=== PATIENT | male | born 1950 | race Caucasian/White ===

== ENCOUNTER 2017-03-29 15:23 | Emergency (ER) | payer BC ==
[~2017-03-29] VITALS: Ht 172.7 cm; Wt 74.5 kg
[2017-03-29 15:33] VITALS: TEMP 36.6; Ht 172.7 cm; Wt 74.5 kg
[2017-03-29] MEDS ORDERED: METOPROLOL TARTRATE 25 MG TAB PO STA (16:16)
--- NOTE | 2017-03-29 16:28 | DIAGNOSTIC IMAGING REPORT ---
CHEST ONE VIEW PORTABLE CLINICAL HISTORY: Chest discomfort COMPARISON STUDY: No previous studies for comparison. FINDINGS: Lung lungs are normal. There is no pneumothorax or pleural effusion. There is no evidence of pulmonary edema. A 2.9 cm nodular left midlung opacity likely reflects summation artifact with pulmonary vessels and ribs. Cardiomediastinal silhouette is normal. IMPRESSION: 1. No acute cardiopulmonary findings. 2. 2.9 cm left mid lung nodular opacity likely reflects summation artifact with ribs and pulmonary vessels. However, follow-up PA and shallow oblique chest radiographs are recommended to exclude a pulmonary nodule or airspace disease. Electronically signed by: Lee Adamson M.D. 03/29/2017 4:27 PM Dictated Date/Time: 03/29/2017 4:26 PM
[2017-03-29 16:47] LABS: HEMATOCRIT 50.1 % (42-52); MEAN CELL VOLUME 94.4 fL (80-100); MEAN CORPUSCULAR HEMOGLOBIN 33.5 pg (25-34); MEAN CORPUSCULAR HGB CONC 35.5 g/dl (32-36); MEAN PLATELET VOLUME 9.7 fL (7.4-10.4); PLATELET COUNT 291 K/uL (130-400); RED BLOOD COUNT 5.31 M/uL (4.7-6.1); WHITE BLOOD COUNT 8.81 K/uL (4.8-10.8)
--- NOTE | 2017-03-29 17:02 | DIAGNOSTIC IMAGING REPORT ---
CHEST-PA,LAT AND OBLIQUE VIEWS CLINICAL HISTORY: Possible pulmonary nodule. COMPARISON STUDY: Chest radiograph performed earlier today. FINDINGS: No pulmonary nodule is identified by radiography. The possible left mid lung nodule shown on prior exam reflects summation artifact. This is not confirmed on these images. Cardiac size is normal. Mediastinal contours are normal. There is no evidence of pulmonary edema. IMPRESSION: No acute cardiopulmonary findings. The possible left lung nodule on prior portable chest radiograph was artifactual. Electronically signed by: Lee Adamson M.D. 03/29/2017 5:01 PM Dictated Date/Time: 03/29/2017 5:00 PM
[2017-03-29 17:03] LABS: PARTIAL THROMBOPLASTIN RATIO 1.1; PROTHROMBIN TIME (PATIENT) 10.5 SECONDS (9.0-12.0)
[2017-03-29 17:10] LABS: ALB/GLOB RATIO 1.1 (0.9-2); BUN/CREATININE RATIO 14.8 (10-20); CALCIUM 8.9 mg/dl (8.5-10.1); CREATININE 1.2 mg/dl (0.60-1.40); POTASSIUM 4.1 mmol/L (3.5-5.1)
[2017-03-29 17:11] LABS: CKMB/CK RATIO 1.5 (0-3.0)
[2017-03-29] MEDS ORDERED: METO25TA56 PO (18:04)
[2017-03-29 18:21] VITALS: BP 124/89; PULSE 79; O2SAT 98
--- NOTE | 2017-03-29 19:09 | EMERGENCY ROOM VISIT NOTE ---
History Report prepared by Soy: Azalea Aguilar Under the Supervision of: Dr. Osmel Jin M.D. First contact with patient: 16:08 Chief Complaint: IRREGULAR HEARTBEAT Stated Complaint: A FIB AND FLUTTER Nursing Triage Summary: pt went to yesterday dx with afib told to come to ed peggy yonny garcía. pt came to ed today. pt denies any chest pain or discomfort at times sob History of Present Illness The patient is a 66 year old male who presents to the Emergency Room with complaints of atrial fibrillation occurring yesterday. The patient states that he was at Dr. Griffith's office getting a flight physical done. During the exam Dr. Griffith noticed he was in A Fib. An ECG was done which revealed atrial fibrillation with flutter. He was referred to the ED for evaluation. He was told to go to the ED immediately but decided to come today. The patient states that sometimes he can feel a skipping sensation in his chest but otherwise is asymptomatic. He states that yesterday and today he cannot tell that he is in A Fib. The patient is currently experiencing no symptoms. He denies chest pain, shortness of breath, lightheadedness, vomiting, nausea, diarrhea, black or bloody stools. The patient was told last year that he was in A Fib. He was seen by of cardiology. He was told to take Metoprolol but he never filled the script. Source of History: patient Onset: yesterday Position: other (global) Quality: other (atrial fibrilation) Timing: other (episode) Associated Symptoms: No chest pain, No SOB, No nausea, No vomiting, No diarrhea Review of Systems See HPI for pertinent positives & negatives. A total of 10 systems reviewed and were otherwise negative. Past Medical & Surgical Medical Problems: (1) Atrial fibrillation (2) S/P hernia repair Family History Patient reports no known family medical history. Social History Smoking Status: Never Smoker Marital Status: Housing Status: lives with family Occupation Status: employed Current/Historical Medications Scheduled Metoprolol Tartrate (Lopressor) (Lopressor), 1 TAB PO BID Allergies Coded Allergies: BEE STING (Verified Allergy, Unknown, ., 03/29/17) Physical Exam Vital Signs Date Time Temp Pulse Resp B/P (MAP) Pulse Ox O2 Delivery O2 Flow Rate FiO2 03/29/17 18:21 79 20 124/89 98 7/12/17 16:59 118 18 139/102 97 Room Air 03/29/17 16:04 92 03/29/17 15:33 36.6 104 18 115/78 97 Room Air Physical Exam Constitutional: Vital signs reviewed. Eyes: Pupils are equal round reactive to light. Conjunctiva are noninjected. ENT: Pharynx is clear without erythema or exudate. Mucous membranes are moist. Neck supple without meningeal signs. Respiratory: Clear to auscultation bilaterally. Breath sounds are equal bilaterally. Cardiovascular: Irregularly irregular rhythm. Tachycardic. Rate of 109. GI: Soft, nondistended and nontender. Bowel sounds are present. Musculoskeletal: No peripheral edema. No lower extremity tenderness. Integumentary: No cyanosis. Neurological: The patient is awake and alert. No focal deficits. Psychiatric: Normal affect. Medical Decision & Procedures ER Provider Diagnostic Interpretation: X-ray results as stated below per interpretation by me and the radiologist: CHEST ONE VIEW PORTABLE CLINICAL HISTORY: Chest discomfort COMPARISON STUDY: No previous studies for comparison. FINDINGS: Lung lungs are normal. There is no pneumothorax or pleural effusion. There is no evidence of pulmonary edema. A 2.9 cm nodular left midlung opacity likely reflects summation artifact with pulmonary vessels and ribs. Cardiomediastinal silhouette is normal. IMPRESSION: 1. No acute cardiopulmonary findings. 2. 2.9 cm left mid lung nodular opacity likely reflects summation artifact with ribs and pulmonary vessels. However, follow-up PA and shallow oblique chest radiographs are recommended to exclude a pulmonary nodule or airspace disease. Electronically signed by: Lee Adamson M.D. 03/29/2017 4:27 PM Dictated Date/Time: 03/29/2017 4:26 PM CHEST-PA,LAT AND OBLIQUE VIEWS CLINICAL HISTORY: Possible pulmonary nodule. COMPARISON STUDY: Chest radiograph performed earlier today. FINDINGS: No pulmonary nodule is identified by radiography. The possible left mid lung nodule shown on prior exam reflects summation artifact. This is not confirmed on these images. Cardiac size is normal. Mediastinal contours are normal. There is no evidence of pulmonary edema. IMPRESSION: No acute cardiopulmonary findings. The possible left lung nodule on prior portable chest radiograph was artifactual. Electronically signed by: Lee Adamson M.D. 03/29/2017 5:01 PM Dictated Date/Time: 03/29/2017 5:00 PM Laboratory Results 03/29/17 16:37 03/29/17 16:37 Test 03/29/17 16:37 03/29/17 17:02 Red Blood Count 5.31 M/uL (4.7-6.1) Mean Corpuscular Volume 94.4 fL (80-100) Mean Corpuscular Hemoglobin 33.5 pg (25-34) Mean Corpuscular Hemoglobin Concent 35.5 g/dl (32-36) RDW Standard Deviation 48.8 fL (36.4-46.3) RDW Coefficient of Variation 14.1 % (11.5-14.5) Mean Platelet Volume 9.7 fL (7.4-10.4) Prothrombin Time 10.5 SECONDS (9.0-12.0) Prothromb Time International Ratio 1.0 (0.9-1.1) Activated Partial Thromboplast Time 28.3 SECONDS (21.0-31.0) Partial Thromboplastin Ratio 1.1 Anion Gap 8.0 mmol/L (3-11) Est Creatinine Clear Calc Drug Dose 60.2 ml/min Estimated GFR () 73.6 Estimated GFR (Non- 63.5 BUN/Creatinine Ratio 14.8 (10-20) Calcium Level 8.9 mg/dl (8.5-10.1) Magnesium Level 2.4 mg/dl (1.8-2.4) Total Bilirubin 0.6 mg/dl (0.2-1) Aspartate Amino Transf (AST/SGOT) 21 U/L (15-37) Alanine Aminotransferase (ALT/SGPT) 28 U/L (12-78) Alkaline Phosphatase 57 U/L (45-117) Total Creatine Kinase 75 U/L (39-308) Creatine Kinase MB 1.1 ng/ml (0.5-3.6) Creatine Kinase MB Ratio 1.5 (0-3.0) Total Protein 7.2 gm/dl (6.4-8.2) Albumin 3.7 gm/dl (3.4-5.0) Globulin 3.5 gm/dl (2.5-4.0) Albumin/Globulin Ratio 1.1 (0.9-2) Bedside Troponin I < 0.030 ng/ml (0-0.045) Laboratory results as reviewed by me. Medications Administered Medications (Trade) Dose Ordered Sig/Moise Route Start Time Stop Time Status Last Admin Dose Admin Metoprolol Tartrate (Lopressor Tab) 25 mg NOW STAT PO 03/29/17 16:16 03/29/17 16:17 DC 03/29/17 16:59 25 MG ECG Indication: palpitations Rate (beats per minute): 119 Rhythm: atrial fibrillation (with RVR) Findings: nonspecific-ST abn, other (no QRS widening) ED Course 1611: The patient was evaluated in room C1. A complete history and physical exam was performed. 1616: Lopressor Tab 25 mg PO. 1706: The patient's heart rate is still about 100. He is being given Metoprolol at this time. He has no complaints. 1723: The patient's heart rate is 90. He is still asymptomatic. 1730: TANNER, DS-VASc score is zero. 1757: I spoke with Dr. Magaña - Cardiology [facility] about the patient. He says to put patient on Metoprolol 25mg BID. Leave on Aspirin. He says to have patient follow up with cardiology within the week. 180: I discussed the plan with the patient. He agrees. His heart rate is 85. 1804: Upon reevaluation, the patient appeared to have improvement of his symptoms. I discussed tonight's findings with him. He verbalized agreement of the treatment plan. He was discharged home. Medical Decision this is a 66-year-old male who presents with atrial fibrillation. Differential diagnosis includes paroxysmal A. fib, chronic A. fib, A. fib with RVR, electrolyte abnormality, dehydration, metabolic derangement. I did perform a limited focused review of portions of the patient's old chart on the electronic medical record. The patient has had no recent pertinent visits to this hospital. Medication Reconciliation: I attest that I have personally reviewed the patient' s current medication list. Blood Pressure Screening: Patient was found to have normal blood pressure on screening and does not require follow-up. I did evaluate the patient as noted above. IV access was established. The patient was placed on a continuous machine compositor. I did order and personally review the patient's 12-lead EKG and chest x-ray as described above. The patient does have atrial fibrillation with RVR. I did treat him with metoprolol 25 mg orally. He is asymptomatic. I did order and review the patient's blood work as noted in the electronic medical record. I did reassess the patient several times. His heart rate did come down. He remains asymptomatic. I did discuss case with the escalator attendant on-call. He recommended discharge the patient with metoprolol 25 mg twice a day and will follow up with him in the office sometime this week. The pillowcase sewer will assist in getting him an appointment expediently. He will remain on aspirin and does not require any anticoagulation based on his risk factors. The patient was happy with this plan. He was discharged with a prescription for metoprolol. Consults Time Called: [phone] Consulting Physician: Dr. Magaña - Cardiology [facility] Returned Call: [phone] Magaña - Cardiology [facility] about the patient. He says to put patient on Metoprolol 25mg BID. Leave on Aspirin. He says to have patient follow up with cardiology within the week. Impression Primary Impression: Atrial fibrillation with RVR Scribe Attestation The scribe's documentation has been prepared under my direct and personally reviewed by me in its entirety. I confirm that the note above accurately reflects all work, treatment, procedures, and medical decision making performed by me. Departure Information Dispostion Home / Self-Care Prescriptions Metoprolol Tartrate (Lopressor) (Lopressor) 25 Mg Tab 1 TAB PO BID for 20 Days, #40 TAB 5 Refills Prov: Osmel Jin M.D. 03/29/17 Referrals Mainor Mueller M.D. (PCP) Forms HOME CARE DOCUMENTATION FORM, IMPORTANT VISIT INFORMATION Patient Instructions Atrial Fibrillation Dc, My [facility] Additional Instructions You have been examined and treated today on an emergency basis only. This is not a substitute for, or an effort to provide, complete comprehensive medical care. It is impossible to recognize and treat all injuries or illnesses in a single emergency department visit. It is therefore important that you follow up closely with your physician and Dr. Kenney of cardiology. Call as soon as possible for an appointment. Return for worsening symptoms or if you develop chest discomfort, shortness of breath, lightheadedness or any other concerning symptoms.
== END 2017-03-29 18:23 | disposition home or self-care (01) ==
LOC: C.EDB 15:25 → C.EDC 18:23
DX: I48.0 Paroxysmal atrial fibrillation (principal); Z79.899 Other long term (current) drug therapy

== ENCOUNTER → 2017-04-10 | Outpatient (CLI) | payer BC ==
[~2017-04-10] MED LIST: METO25TA56 PO
--- NOTE | 2017-04-10 07:59 | DIAGNOSTIC IMAGING REPORT ---
CHEST 2 VIEWS ROUTINE CLINICAL HISTORY: 66 years-old Male presenting with CHEST DISCOMFORT. TECHNIQUE: PA and lateral views of the chest were obtained. COMPARISON: 03/29/2017. FINDINGS: Cardiomediastinal silhouette normal. Lungs and pleural spaces clear. Osseous structures and upper abdomen normal. IMPRESSION: 1. No acute cardiopulmonary disease. Electronically signed by: Timur Rosenthal M.D. 04/10/2017 7:58 AM Dictated Date/Time: 04/10/2017 7:56 AM
== END | disposition home or self-care (01) ==
LOC: C.RAD 07:35
PROVIDERS: ATTEND Family Medicine
DX: R07.9 Chest pain, unspecified (principal)

== ENCOUNTER → 2017-04-24 | Outpatient (CLI) | payer BC | END | disposition home or self-care (01) | LOC: C.LAB1850 10:38 | PROVIDERS: ATTEND Physician Assistant | DX: I48.91 Unspecified atrial fibrillation (principal) ==